=== PATIENT | female | born 1970 | race Caucasian/White ===

== ENCOUNTER 2016-09-27 09:39 | Outpatient (CLI) | payer OTHER ==
--- NOTE | 2016-09-27 11:32 | DIAGNOSTIC IMAGING REPORT ---
PROCEDURE: US COMPLETE PELVIC W/TRANSVAG INDICATION: ABNORMAL MENSTRAL BLEEDING TECHNIQUE: Transabdominal and endovaginal walker scale and color Doppler sonographic images of the female pelvis were obtained. COMPARISON: None. FINDINGS: TRANSABDOMINAL SCANS: Normal kidneys. TRANSVAGINAL SCANS: Anteverted uterus measures 5.9 x 4.1 x 3.3 cm. Myometrium is unremarkable. There is thickening of the endocervical canal (9 mm). Endometrium measures 10 mm. Ovaries are not visualized. No adnexal mass or free fluid the cul-de-sac. IMPRESSION: 1. Thickening of the endocervical canal (9 mm) suggestive of debris/hemorrhage 2. Ovaries not visualized but no adnexal mass or free fluid in the cul-de-sac
== END 2016-09-27 23:00 ==
LOC: US SRH 09:39
DX: N92.0 Excessive and frequent menstruation with regular cycle (principal); R93.8 Abnormal findings on diagnostic imaging of other specified body structures

== ENCOUNTER 2016-10-14 12:13 | Outpatient (CLI) | payer OTHER | END 2016-10-14 23:00 | LOC: LAB SRH 12:13 | DX: L65.0 Telogen effluvium (principal) | CPT/HCPCS: 90032; 90074; 91096; 92668; 92670; 93140; 95059 ==